=== PATIENT | male | born 1950 | race Caucasian/White ===

== ENCOUNTER 2016-10-15 04:53 | Emergency (ER) | payer OTHER ==
[~2016-10-15] VITALS: Ht 185.4 cm; Wt 104.3 kg
[~2016-10-15 04:53] MED LIST: PROB1CAP41 OR
[2016-10-15 04:57] VITALS: TEMP 36.3; Ht 185.4 cm; Wt 104.3 kg
[2016-10-15] MEDS ORDERED: SIMV5TAB2 PO (05:26)
[2016-10-15] MEDS ORDERED: MULT-506 PO (05:27)
[2016-10-15] MEDS ORDERED: MoRPHine SULFATE 4 MG/ML 1 ML CARP\\VIAL IV STA (05:52)
[2016-10-15] MEDS ORDERED: ONDANSETRON INJ 2 MG/ML 2 ML VIAL IV STA (05:52)
[2016-10-15 06:03] LABS: BASO % 0.5 %; BASO ABS # 0.05 K/uL (0-0.2); COMPLETE YES; HEMATOCRIT 45.4 % (42-52); IG% 0.2 %; LYMPH % 15.3 %; LYMPH ABS # 1.48 K/uL (1.2-3.4); MEAN CELL VOLUME 89.5 fL (80-100); MEAN CORPUSCULAR HEMOGLOBIN 30.4 pg (25-34); MEAN CORPUSCULAR HGB CONC 33.9 g/dl (32-36); MEAN PLATELET VOLUME 9.3 fL (7.4-10.4); MONO % 5.3 %; NEUT % 75.7 %; PLATELET COUNT 217 K/uL (130-400); RED BLOOD COUNT 5.07 M/uL (4.7-6.1); WHITE BLOOD COUNT 9.67 K/uL (4.8-10.8)
[2016-10-15 06:11] LABS: BLOOD UREA NITROGEN 17 mg/dl (7-18); BUN/CREATININE RATIO 15.5 (10-20); CALCIUM 8.8 mg/dl (8.5-10.1); CARBON DIOXIDE 24 mmol/L (21-32); CHLORIDE 104 mmol/L (98-107); GLUCOSE 156 mg/dl (70-99); SODIUM 137 mmol/L (136-145)
--- NOTE | 2016-10-15 06:16 | EMERGENCY ROOM VISIT NOTE ---
ED Visit Note First contact with patient: 05:02 I have seen and examined this patient with Jie Summers and generally agree with the treatment plan as discussed. Current/Historical Medications Scheduled Multivitamin (Multivitamin), 1 TAB PO DAILY Simvastatin (Zocor), Unknown Dose PO QPM Allergies Coded Allergies: No Known Allergies (Verified , ., 10/15/16) Vital Signs Date Time Temp Pulse Resp B/P (MAP) Pulse Ox O2 Delivery O2 Flow Rate FiO2 10/15/16 04:57 36.3 75 20 198/88 97 Room Air Laboratory Results 10/15/16 05:45 Red Blood Count 5.07, Mean Corpuscular Volume 89.5, Mean Corpuscular Hemoglobin 30.4, Mean Corpuscular Hemoglobin Concent 33.9, Mean Platelet Volume 9.3, Neutrophils (%) (Auto) 75.7, Lymphocytes (%) (Auto) 15.3, Monocytes (%) (Auto) 5.3, Eosinophils (%) (Auto) 3.0, Basophils (%) (Auto) 0.5, Neutrophils # (Auto) 7.32, Lymphocytes # (Auto) 1.48, Monocytes # (Auto) 0.51, Eosinophils # (Auto) 0.29, Basophils # (Auto) 0.05 10/15/16 05:45 Test 10/15/16 05:45 White Blood Count 9.67 K/uL (4.8-10.8) Red Blood Count 5.07 M/uL (4.7-6.1) Hemoglobin 15.4 g/dL (14.0-18.0) Hematocrit 45.4 % (42-52) Mean Corpuscular Volume 89.5 fL (80-100) Mean Corpuscular Hemoglobin 30.4 pg (25-34) Mean Corpuscular Hemoglobin Concent 33.9 g/dl (32-36) Platelet Count 217 K/uL (130-400) Mean Platelet Volume 9.3 fL (7.4-10.4) Neutrophils (%) (Auto) 75.7 % Lymphocytes (%) (Auto) 15.3 % Monocytes (%) (Auto) 5.3 % Eosinophils (%) (Auto) 3.0 % Basophils (%) (Auto) 0.5 % Neutrophils # (Auto) 7.32 K/uL (1.4-6.5) Lymphocytes # (Auto) 1.48 K/uL (1.2-3.4) Monocytes # (Auto) 0.51 K/uL (0.11-0.59) Eosinophils # (Auto) 0.29 K/uL (0-0.5) Basophils # (Auto) 0.05 K/uL (0-0.2) RDW Standard Deviation 42.4 fL (36.4-46.3) RDW Coefficient of Variation 13.0 % (11.5-14.5) Immature Granulocyte % (Auto) 0.2 % Immature Granulocyte # (Auto) 0.02 K/uL (0.00-0.02) Anion Gap 9.0 mmol/L (3-11) Est Creatinine Clear Calc Drug Dose 81.5 ml/min Estimated GFR () 79.5 Estimated GFR (Non- 68.6 BUN/Creatinine Ratio 15.5 (10-20) Calcium Level 8.8 mg/dl (8.5-10.1) Lipase 173 U/L (73-393) Medications Administered Medications (Trade) Dose Ordered Sig/Sahil Route Start Time Stop Time Status Last Admin Dose Admin Morphine Sulfate (MoRPHine SULFATE INJ) 4 mg NOW STAT IV 10/15/16 05:52 10/15/16 05:53 DC 10/15/16 06:12 4 MG Ondansetron HCl (Zofran Inj) 4 mg NOW STAT IV 10/15/16 05:52 10/15/16 05:53 DC 10/15/16 06:12 4 MG Departure Information Referrals Michael Bojorquez M.D. (PCP) Patient Instructions [facility]
--- NOTE | 2016-10-15 06:16 | EMERGENCY ROOM VISIT NOTE ---
History First contact with patient: 05:02 Chief Complaint: ABDOMINAL PAIN Stated Complaint: STOMACH PAIN Nursing Triage Summary: C/O mid epigastric pain that started at 2100 last night. Describes pain as "burning" & intermittent. Denies n/v/d. Took OTC meds at home without relief- has worked in past for this pain. Also reports hx of gallstones at some point. History of Present Illness The patient is a 66 year old male who presents to the Emergency Room with complaints of persistent pain to his midepigastric region over the past 7 hours. Patient describes his pain as a "gas bubble", but it has not been relieved after attempting to burp. He has also taken Gas-X, Zantac and Advil without relief. Patient states that he ate steak, potatoes and corn at about 1800 last evening, but the pain to his midepigastrium did not begin until 2200. His pain is more tolerable with sitting up but worsens with laying down. He denies nausea, vomiting, diarrhea, fevers or chills. Also denies having chest pain or shortness of breath at any time throughout this episode. Patient was able to have a normal bowel movement earlier yesterday morning, denies noticing hematochezia or melena. Patient notes that he has experienced similar pains in the past, about 2-3x per year, but these episodes have now become more frequent. He did experience an episode last week, but he states that the pain subsided on its own after burping a few hours later. He has never experienced an episode that has lasted this long in the past. Patient did have a CT of his gallbladder a few years ago and was told that he had gallstones. Denies hx of abdominal surgeries. Review of Systems A complete 10 point review of systems was reviewed with the patient with pertinent positives and negatives as per history of present illness. All else were negative. Past Medical/Surgical History Medical Problems: (1) Hypertension Surgical Problems: (1) History of back surgery Family History No significant family history Social History Smoking Status: Current Every Day Smoker Marital Status: Housing Status: lives with family Current/Historical Medications Scheduled Multivitamin (Multivitamin), 1 TAB PO DAILY Simvastatin (Zocor), Unknown Dose PO QPM Allergies Coded Allergies: No Known Allergies (Verified , ., 10/15/16) Physical Exam Vital Signs Date Time Temp Pulse Resp B/P (MAP) Pulse Ox O2 Delivery O2 Flow Rate FiO2 10/15/16 08:08 65 18 168/98 96 10/15/16 07:22 65 18 164/88 96 Room Air 10/15/16 04:57 36.3 75 20 198/88 97 Room Air Physical Exam VITALS: Vitals are noted on the nurse's note and reviewed by myself. Vital signs stable. GENERAL: This is a 58-year-old male, in no acute distress, nondiaphoretic, well- developed well-nourished. SKIN: Capillary reflex less than 2 seconds.y. HEART: Regular rate and rhythm without murmurs gallops or rubs. LUNGS: Clear to auscultation bilaterally without wheezes, rales or rhonchi. ABDOMEN: Positive bowel sounds x 4. Soft, mild tenderness of the epigastric region. No right upper quadrant tenderness. Negative Breen sign. No guarding or rebound tenderness. NEURO: Patient was alert and oriented to person place and time. Medical Decision & Procedures ER Provider Diagnostic Interpretation: CHEST ONE VIEW PORTABLE FINDINGS: Cardiac silhouette is upper limits of normal. There is mild left hemidiaphragm elevation redemonstrated. No pneumothorax, pleural effusion, focal airspace consolidation or overt pulmonary edema. There is minimal convex right curvature of the upper thoracic spine. The bones appear grossly intact. IMPRESSION: No acute cardiopulmonary process. ABDOMINAL ULTRASOUND, RIGHT UPPER QUADRANT FINDINGS: Increased hepatic echogenicity is noted. This suggests fatty infiltration with sparing within the gallbladder fossa. The pancreatic body is normal. The head and tail are obscured. There are multiple stones within the gallbladder. There is sludge within the gallbladder. No sonographic Breen sign was elicited. There is no gallbladder wall thickening. No biliary ductal dilatation is present. Common bile duct measures 6 mm in caliber. There is no right hydronephrosis. IMPRESSION: 1. Cholelithiasis. No gallbladder wall thickening. No sonographic Breen sign. 2. No biliary ductal dilatation. 3. Fatty liver. 4. Partially obscured pancreas. Laboratory Results 10/15/16 05:45 Red Blood Count 5.07, Mean Corpuscular Volume 89.5, Mean Corpuscular Hemoglobin 30.4, Mean Corpuscular Hemoglobin Concent 33.9, Mean Platelet Volume 9.3, Neutrophils (%) (Auto) 75.7, Lymphocytes (%) (Auto) 15.3, Monocytes (%) (Auto) 5.3, Eosinophils (%) (Auto) 3.0, Basophils (%) (Auto) 0.5, Neutrophils # (Auto) 7.32, Lymphocytes # (Auto) 1.48, Monocytes # (Auto) 0.51, Eosinophils # (Auto) 0.29, Basophils # (Auto) 0.05 10/15/16 05:45 Test 10/15/16 05:45 10/15/16 07:30 White Blood Count 9.67 K/uL (4.8-10.8) Red Blood Count 5.07 M/uL (4.7-6.1) Hemoglobin 15.4 g/dL (14.0-18.0) Hematocrit 45.4 % (42-52) Mean Corpuscular Volume 89.5 fL (80-100) Mean Corpuscular Hemoglobin 30.4 pg (25-34) Mean Corpuscular Hemoglobin Concent 33.9 g/dl (32-36) Platelet Count 217 K/uL (130-400) Mean Platelet Volume 9.3 fL (7.4-10.4) Neutrophils (%) (Auto) 75.7 % Lymphocytes (%) (Auto) 15.3 % Monocytes (%) (Auto) 5.3 % Eosinophils (%) (Auto) 3.0 % Basophils (%) (Auto) 0.5 % Neutrophils # (Auto) 7.32 K/uL (1.4-6.5) Lymphocytes # (Auto) 1.48 K/uL (1.2-3.4) Monocytes # (Auto) 0.51 K/uL (0.11-0.59) Eosinophils # (Auto) 0.29 K/uL (0-0.5) Basophils # (Auto) 0.05 K/uL (0-0.2) RDW Standard Deviation 42.4 fL (36.4-46.3) RDW Coefficient of Variation 13.0 % (11.5-14.5) Immature Granulocyte % (Auto) 0.2 % Immature Granulocyte # (Auto) 0.02 K/uL (0.00-0.02) Anion Gap 9.0 mmol/L (3-11) Est Creatinine Clear Calc Drug Dose 81.5 ml/min Estimated GFR () 79.5 Estimated GFR (Non- 68.6 BUN/Creatinine Ratio 15.5 (10-20) Calcium Level 8.8 mg/dl (8.5-10.1) Troponin I < 0.015 ng/ml (0-0.045) Lipase 173 U/L (73-393) Urine Color YELLOW Urine Appearance CLEAR (CLEAR) Urine pH 6.0 (4.5-7.5) Urine Specific Cameron 1.019 (1.000-1.030) Urine Protein NEG (NEG) Urine Glucose (UA) NEG (NEG) Urine Ketones 1+ (NEG) Urine Occult Blood NEG (NEG) Urine Nitrite NEG (NEG) Urine Bilirubin NEG (NEG) Urine Urobilinogen NEG (NEG) Urine Leukocyte Esterase NEG (NEG) Laboratory results reviewed by me Medications Administered Medications (Trade) Dose Ordered Sig/Sahil Route Start Time Stop Time Status Last Admin Dose Admin Morphine Sulfate (MoRPHine SULFATE INJ) 4 mg NOW STAT IV 10/15/16 05:52 10/15/16 05:53 DC 10/15/16 06:12 4 MG Ondansetron HCl (Zofran Inj) 4 mg NOW STAT IV 10/15/16 05:52 10/15/16 05:53 DC 10/15/16 06:12 4 MG ECG Rate (beats per minute): 65 Rhythm: normal sinus Findings: no acute ischemic change, no ectopy Change: no significant change ED Course The patient was evaluated as above. Labs were drawn and IV access was obtained. Patient was medicated with 4 mg morphine and 4 mg Zofran IV. Ultrasound of the right upper quadrant was performed and read by radiology as above. Patient was reevaluated and had improvement of symptoms. Findings were discussed with the patient. Discharge instructions were reviewed with the patient. The patient verbalized understanding of my assessment and treatment plan and was discharged home in good condition. Medical Decision Differential diagnosis includes cholecystitis, pancreatitis, peptic ulcer disease, gastritis, cardiac disease, among others. The patient is a 66-year-old male who presents today complaining of epigastric pain and belching. The patient does report a history of gallstones. Labs revealed no leukocytosis, anemia or concerning electrolyte abnormalities. Urinalysis was not suggestive of infection. EKG was interpreted by myself and shows no ischemic changes. Right upper quadrant ultrasound was performed and shows no evidence of acute gallbladder disease. The patient may have gastritis or peptic ulcer disease. He was instructed to take omeprazole at home. He should follow-up with his primary care provider for further evaluation and treatment. He was invited to return here for any worsening of his current condition or new/concerning symptoms. The patient was independently evaluated by Dr. Peña, ED attending physician , who agreed with my assessment and treatment plan. Based on the patient's presentation and work up, I feel the patient is stable for outpatient treatment. The patient was educated to return to the emergency department for any worsening of their current condition or new/concerning symptoms. He will follow up with his PCP. Medication reconciliation: I attest that I have personally reviewed the patient 's current medication list. Blood pressure screening: Patient was found to have an elevated blood pressure and was referred to their primary care provider for recheck and further treatment. Impression Primary Impression: Epigastric abdominal pain Departure Information Dispostion Home / Self-Care Condition GOOD Referrals Michael Bojorquez M.D. (PCP) Patient Instructions [facility] Additional Instructions Prilosec (omeprazole) 40 mg daily in the morning. You may take Maalox or other similar [id number] medications for symptomatic relief. Avoid spicy food, tomato based foods, alcohol, caffeine, and fatty foods as these may exacerbate your symptoms. Follow-up with your primary care provider this week for further evaluation. You may need more testing performed as an outpatient. Return to the emergency department with worsening pain, vomiting, fevers or any other new/concerning symptoms.
--- NOTE | 2016-10-15 06:37 | DIAGNOSTIC IMAGING REPORT ---
CHEST ONE VIEW PORTABLE HISTORY:66 yearsMaleepigastric pain, belching, hx gallstones COMPARISON: 12/14/2012. TECHNIQUE: Portable upright AP view of the chest. FINDINGS: Cardiac silhouette is upper limits of normal. There is mild left hemidiaphragm elevation redemonstrated. No pneumothorax, pleural effusion, focal airspace consolidation or overt pulmonary edema. There is minimal convex right curvature of the upper thoracic spine. The bones appear grossly intact. IMPRESSION: No acute cardiopulmonary process. The above report was generated using voice recognition software. It may contain grammatical, syntax or spelling errors. Electronically signed by: Christoph Boucher 10/15/2016 6:35 AM Dictated Date/Time: 10/15/2016 6:34 AM
--- NOTE | 2016-10-15 07:39 | DIAGNOSTIC IMAGING REPORT ---
ABDOMINAL ULTRASOUND, RIGHT UPPER QUADRANT HISTORY: Epigastric pain. History of gallstones. COMPARISON: CT of the abdomen and pelvis December 15, 2012. FINDINGS: Increased hepatic echogenicity is noted. This suggests fatty infiltration with sparing within the gallbladder fossa. The pancreatic body is normal. The head and tail are obscured. There are multiple stones within the gallbladder. There is sludge within the gallbladder. No sonographic Breen sign was elicited. There is no gallbladder wall thickening. No biliary ductal dilatation is present. Common bile duct measures 6 mm in caliber. There is no right hydronephrosis. IMPRESSION: 1. Cholelithiasis. No gallbladder wall thickening. No sonographic Breen sign. 2. No biliary ductal dilatation. 3. Fatty liver. 4. Partially obscured pancreas. Electronically signed by: Jae Lim M.D. 10/15/2016 7:38 AM Dictated Date/Time: 10/15/2016 7:12 AM
[2016-10-15 08:04] LABS: URINE APPEARANCE CLEAR (CLEAR); URINE BILIRUBIN NEG (NEG); URINE COLOR YELLOW; URINE NITRITE NEG (NEG); URINE SPECIFIC GRAVITY 1.019 (1.000-1.030); UROBILINOGEN NEG (NEG); ZZUR CULT IF INDIC CLEAN CATCH NO
[2016-10-15 08:06] LABS: MANUAL MICROSCOPIC REQUIRED? NO; REVIEW REQ? NO
[2016-10-15 08:08] VITALS: BP 168/98; PULSE 65; O2SAT 96
== END 2016-10-15 08:09 | disposition home or self-care (01) ==
LOC: C.EDB 04:54
DX: R10.13 Epigastric pain (principal); I10 Essential (primary) hypertension; F17.210 Nicotine dependence, cigarettes, uncomplicated; Z79.899 Other long term (current) drug therapy